=== PATIENT | male | born 1980 | race Caucasian/White ===

== ENCOUNTER → 2016-04-08 | Outpatient (CLI) | payer OTHER ==
[~2016-04-08] MED LIST: OXYC-57 PO
--- NOTE | 2016-04-08 15:49 | DIAGNOSTIC IMAGING REPORT ---
CHEST 2 VIEWS ROUTINE HISTORY: PRE-OP Z01.812 COMPARISON: None. FINDINGS: The lungs are clear. Cardiac silhouette is normal in size. No pleural effusions. No pneumothorax. IMPRESSION: No acute process. Electronically signed by: Rajeev Wharton M.D. 04/08/2016 3:48 PM Dictated Date/Time: 04/08/2016 3:45 PM
[2016-04-08 16:29] LABS: BASO % 1.2 %; BASO ABS # 0.16 K/uL (0-0.2); COMPLETE YES; EOS % 4.5 %; HEMATOCRIT 39.3 % (42-52); IG% 0.2 %; LYMPH % 26.9 %; LYMPH ABS # 3.65 K/uL (1.2-3.4); MEAN CELL VOLUME 88.7 fL (80-100); MEAN CORPUSCULAR HEMOGLOBIN 31.2 pg (25-34); MEAN CORPUSCULAR HGB CONC 35.1 g/dl (32-36); MEAN PLATELET VOLUME 10.8 fL (7.4-10.4); MONO % 6.4 %; NEUT % 60.8 %; PLATELET COUNT 309 K/uL (130-400); RED BLOOD COUNT 4.43 M/uL (4.7-6.1); WHITE BLOOD COUNT 13.57 K/uL (4.8-10.8)
[2016-04-08 16:39] LABS: BLOOD UREA NITROGEN 7 mg/dl (7-18); BUN/CREATININE RATIO 6.1 (10-20); CALCIUM 8.8 mg/dl (8.5-10.1); CARBON DIOXIDE 25 mmol/L (21-32); CHLORIDE 110 mmol/L (98-107); GLUCOSE 100 mg/dl (70-99); POTASSIUM 3.9 mmol/L (3.5-5.1); SODIUM 145 mmol/L (136-145); URINE APPEARANCE CLOUDY (CLEAR); URINE BILIRUBIN NEG (NEG); URINE COLOR DK YELLOW; URINE EPITHELIAL CELL AUTO >30 /lpf (0-5); URINE NITRITE NEG (NEG); URINE PH 5.5 (4.5-7.5); URINE SPECIFIC GRAVITY 1.024 (1.000-1.030); UROBILINOGEN NEG (NEG)
[2016-04-08 16:40] LABS: MANUAL MICROSCOPIC REQUIRED? NO; REVIEW REQ? YES
[2016-04-08 17:01] LABS: URINE MUCUS PRESENT (NONE PRSENT)
== END | disposition home or self-care (01) ==
LOC: C.CPL 15:09
PROVIDERS: ATTEND Orthopaedic Surgery Orthopaedic Surgery of the Spine
DX: Z01.812 Encounter for preprocedural laboratory examination (principal)

== ENCOUNTER 2016-04-11 14:33 | Observation (INO) | payer OTHER ==
[~2016-04-11] VITALS: Ht 190.5 cm; Wt 91.5 kg
[2016-04-11 18:28] VITALS: Ht 190.5 cm; Wt 91.5 kg
[2016-04-11] MEDS ORDERED: LORAZEPAM INJ 1 MG in SYRINGE 0 ML IV PRN (18:30)
[2016-04-11] MEDS ORDERED: NALOXONE HCL 0.4 MG/1 ML VIAL/CARP IV PRN (18:30)
[2016-04-11] MEDS ORDERED: LORAZEPAM 1 MG TAB PO PRN (18:30)
[2016-04-11] MEDS ORDERED: PROMETHAZINE HCL INJ 12.5 MG in SODIUM CHLORIDE 0.9% 50ML 50 ML IV PRN (18:30)
[2016-04-11 19:24] VITALS: BP 123/80; PULSE 92; TEMP 37.2; O2SAT 98
[2016-04-11 19:51] LABS: BASO % 1.8 %; BASO ABS # 0.18 K/uL (0-0.2); COMPLETE YES; EOS % 8.8 %; HEMATOCRIT 40.2 % (42-52); IG% 0.4 %; LYMPH % 31.2 %; LYMPH ABS # 3.18 K/uL (1.2-3.4); MEAN CELL VOLUME 88.2 fL (80-100); MEAN CORPUSCULAR HEMOGLOBIN 30.7 pg (25-34); MEAN CORPUSCULAR HGB CONC 34.8 g/dl (32-36); MEAN PLATELET VOLUME 10.6 fL (7.4-10.4); MONO % 7.1 %; NEUT % 50.7 %; PLATELET COUNT 309 K/uL (130-400); RED BLOOD COUNT 4.56 M/uL (4.7-6.1); WHITE BLOOD COUNT 10.19 K/uL (4.8-10.8)
[2016-04-11] MEDS ORDERED: TOPIRAMATE 100 MG TAB PO ONE (20:15)
[2016-04-11] MEDS ORDERED: LORAZEPAM INJ 1 MG in SYRINGE 0.5 ML IV PRN (20:15)
--- NOTE | 2016-04-11 20:21 | Anesthesiology Progress Note ---
Anesthesia Progress Note Date of Service Apr 11, 2016. Progress Notes Pt is tentatively scheduled for R L4-5 microdiscectomy. 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 The pt has been on topamax, but has not been on the medication for 1 month. The pt has not had a seizure in about 5 years. Neurology has been consulted, and will need to provide clearance prior to the pt going to the operating room. Anesthesia will re-evaluate the pt after neurology has evaluated the pt.
--- NOTE | 2016-04-11 21:17 | DIAGNOSTIC IMAGING REPORT ---
CHEST ONE VIEW PORTABLE CLINICAL HISTORY: pre op COMPARISON STUDY: 04/08/2016 FINDINGS: The bones soft tissues and hemidiaphragms are normal. The cardiomediastinal silhouette is normal. The lungs are clear. The pulmonary vasculature is normal. IMPRESSION: Negative chest. Electronically signed by: Yehuda Montoya M.D. 04/11/2016 9:16 PM Dictated Date/Time: 04/11/2016 9:15 PM
[2016-04-11] MEDS: SODIUM CHLORIDE 0.9% 1000ML 1,000 ML IV SCH (21:32)
[2016-04-11] MEDS: DEXAMETHASONE INJ 8 MG in SYRINGE 0 ML IV SCH (21:32)
[2016-04-11] MEDS ORDERED: IV FLUIDS COMPLETED PRN (21:45)
[2016-04-11 23:35] VITALS: BP 118/73; PULSE 74; TEMP 37.2; O2SAT 96
[2016-04-11] MEDS: HYDROmorphone HCL 0.5MG/ML 50 ML CASSETTE IV PRN (23:39)
--- NOTE | 2016-04-12 01:23 | INTERNAL MEDICINE CONSULTATION ---
DATE OF CONSULTATION: 04/11/2016 CHIEF COMPLAINT: Back pain. HISTORY OF PRESENT ILLNESS: This is a 35-year-old male with past medical history significant for seizures and hypertension, comes here secondary to severe back pain and plan for back surgery. The patient says he moved to this place recently and is not following with any doctors and is not taking his seizure medications and blood pressure medications for about a month now. He says he was on Topamax for seizures. He was on gabapentin and Vistaril, does not remember his blood pressure medications and also dose of his medications.His back pain was getting worse and seen by orthopedics and was admitted for elective back surgery. Currently except for back pain, denies any other complaints. No shortness of breath, no cough, no fever, no chills, no headaches, no blurred vision, no dizziness, no nausea, no vomiting. Eating okay. Normal bladder movements. Has some constipation. The patient says his last seizure episode was long time back. ALLERGIES: BEE STING, HIGUERA FISH, JELLYFISH. PAST MEDICAL HISTORY: As mentioned above. PAST SURGICAL HISTORY: None. MEDICATIONS: Currently not taking any medications. FAMILY HISTORY: Not significant. REVIEW OF SYMPTOMS: As per HPI. Rest of review of systems is negative. PHYSICAL EXAMINATION: GENERAL: The patient is of moderate build, not in distress. VITAL SIGNS: Temperature 37.2, pulse 92, respiratory rate 18, blood pressure 123/80, oxygen 98% room air. HEENT: No pallor, no icterus. NECK: No JVD, no neck masses, no carotid bruits. CARDIOVASCULAR: S1, S2 heard. Regular rate and rhythm. No murmur, no gallop. RESPIRATORY SYSTEM: Clear to auscultation bilaterally. No wheezing, no crackles. ABDOMEN: Soft, bowel sounds present. Nontender. No distention. CENTRAL NERVOUS SYSTEM: Nonfocal. EXTREMITIES: No edema, no erythema. LABORATORY DATA: WBC 10.1, hemoglobin 14, hematocrit 40.0, platelets 309. ELECTROCARDIOGRAM AND CHEST X-RAY: Recent chest x-ray, no acute process seen. EKG done on April 08 showed normal sinus rhythm with rate of 86, no acute ST changes seen. ASSESSMENT AND PLAN: This is a 35-year-old male who presents with severe back pain. 1. Severe back pain. Plan for surgery. Pain control as per orthopedics. Labs, recent EKG and chest x-ray are fine. We will follow the BMP. The patient is at acceptable risk to proceed with surgery. Post surgical care as per orthopedics. 2. History of seizures. The patient says he was on Topamax, does not remember the dose. The patient says since he moved to [place], he is not following with any doctors and is not taking his medications for about a month, last seizure episode was many years ago. We will place him on Topamax 100 mg daily. The patient likes to follow with neurologist, so we will consult neurology in the a.m. for further recommendations. 3. Hypertension. The patient says he also was on blood pressure medication, but does not remember the name of the medication. Blood pressure seems to be okay now. We will place him on IV hydralazine p.r.n. If blood pressure gets elevated in the hospital, we will put him on blood pressure medication and he needs to follow with the family doctor. He is okay following with [facility] doctors. 4. Deep venous thrombosis prophylaxis and disposition as per orthopedics. MTDD
[2016-04-12] MEDS: DEXAMETHASONE INJ 8 MG in SYRINGE 0 ML IV SCH ×2 (03:39→11:50)
[2016-04-12 04:02] VITALS: BP 94/57; PULSE 71; TEMP 36.7; O2SAT 96
[2016-04-12] MEDS ORDERED: CEFAZOLIN 2000 MG/60 ML D5W IV SCH (06:00)
[2016-04-12] MEDS ORDERED: CEFAZOLIN IV 2,000 MG in DEXTROSE 5% 50ML 50 ML IV SCH (06:00)
[2016-04-12 06:45] LABS: BUN/CREATININE RATIO 10.6 (10-20); CALCIUM 9.3 mg/dl (8.5-10.1); CREATININE 1.2 mg/dl (0.60-1.40); POTASSIUM 4.5 mmol/L (3.5-5.1)
[2016-04-12] MEDS: HYDROmorphone HCL 0.5MG/ML 50 ML CASSETTE IV PRN ×2 (06:56→14:59)
[2016-04-12 07:17] VITALS: BP 100/62; PULSE 72; TEMP 36.5; O2SAT 96
[2016-04-12] MEDS: OXYCODONE/ACETAMINOPHEN 5-325 TAB PO PRN ×2 (08:41→22:05)
[2016-04-12] MEDS ORDERED: TOPIRAMATE 100 MG TAB PO SCH (09:00)
--- NOTE | 2016-04-12 09:16 | Neurology Consultation ---
Neurology Consultation Date of Consultation: Apr 12, 2016. Attending Physician: Domingo Naqvi M.D. Primary Care Physician: No Doctor, Assigned Reason for Consultation: Consultation for history of seizures History of Present Illness Source: patient, hospital records This is a 35-year-old male who presents to the hospital with chronic worsening back pain with symptoms of pain and numbness going down the right leg. Patient admitted for elective lumbar surgery. Patient reports that he first heard to have seizures when he was 11 years old. He states that there are temporal lobe seizure but denies any knowledge of abnormal EEGs and states that he is never had an MRI of his brain. He denies any aura or warning. He reports that he gets all shaky and often is aware of generalized shaking. He reports that over the lightheaded and passed out. He also reports that his girlfriend says that he frequently shakes and asleep. He reports rare episodes of urinary incontinence during sleep. He reports these but the tip of his tongue in the past. Patient reports is not sure when his last seizure was. He reports having a 24-hour ambulatory EEG in the remote past but does not know the results. Denies ever having an MRI of his brain. In addition also reports sleep paralysis in which she wakes up and cannot move. He reports that his last neurologist was when he was institutionalized in a [facility] near [place]. He does not know the neurologist name. He denies ever being given the diagnosis of nonepileptic seizures. He reports that he was taking Topamax 50 mg twice a day for seizures. He reports some taste change and weight loss. He thinks that it did improve his seizures but it's not clear whether they stopped them. He denies that Topamax is being used for migraines or psychiatric reasons. Past medication trials: Topamax 50 mg twice a day he reports worked well but had side effects of taste change and decreased weight Depakote caused too much weight gain Tegretol he "grew out of it" Carbamazepine caused hallucinations In addition the patient reports getting frequent headaches. He reports headaches started in his 20s. He gets a few per week. They've been slowly worsening over the years. They tend to be bifrontal and occipital. There is a throbbing quality. He sometimes sees flashes of light in his vision. They can last 1-2 days. He gets light and sound sensitive. He will get nauseous and sometimes vomit. On review of systems patient has severe lumbar back pain with radiating pain down the right leg and numbness. Past Medical/Surgical History Schizophrenia Hypertension Seizures NOS (patient reports that the temporal lobe but does not know which side) Denies any past surgeries Family History Patient reports that he is adopted Social History Patient reports that he is on disability for schizophrenia Smokes a half a pack per day, no alcohol use. Reports using a regular marijuana. No synthetic marijuana Allergies Coded Allergies: BEE STING (Verified Allergy, Unknown, 'lungs fill with fluid' per pt, 04/11) Hicks (Verified Allergy, Unknown, 'lungs fill with fluid' per pt, 04/11/16 ) Shellfish (Verified Allergy, Unknown, 'lungs fill with fluid' per pt, 04/11) Current Inpatient Medications Current Inpatient Medications Medications (Trade) Dose Ordered Sig/Christian Route Start Time Stop Time Status Last Admin Dose Admin Dexamethasone Sodium Phosphate 8 mg/Syringe 2 ml @ 1 mls/min Q8H IV 04/11/16 20:00 04/12/16 12:01 04/12/16 03:39 1 MLS/MIN Promethazine HCl/ Sodium Chloride (Phenergan Inj/ Nss 50ml) 50.5 ml @ 202 mls/hr Q6H PRN IV 04/11/16 18:30 05/11/16 18:29 Ondansetron HCl (Zofran Inj) 4 mg Q6H PRN IV 04/11/16 18:30 05/11/16 18:29 Lorazepam 1 mg 1 mg Q6H PRN PO 04/11/16 18:30 05/11/16 18:29 Lorazepam/Syringe (Ativan Inj/ Syringe) 0.5 ml @ 1 mls/min Q6H PRN IV 04/11/16 18:30 05/11/16 18:29 Oxycodone/ Acetaminophen (Percocet 5-325mg Tab) Moderate to Severe deborah... Q4H PRN PO 04/11/16 18:30 04/25/16 18:29 04/12/16 08:41 2 TAB Naloxone HCl (Narcan Inj) 0.1 mg Q5M PRN IV 04/11/16 18:30 05/11/16 18:29 Hydromorphone HCl 25 mg 25 mg PRN PRN IV 04/11/16 18:30 04/25/16 18:29 04/12/16 06:56 25 MG Sodium Chloride 1,000 ml @ 15 mls/hr Q24H IV 04/11/16 18:20 05/11/16 18:19 04/11/16 21:32 15 MLS/HR Cefazolin Sodium (Ancef 2000mg/60 ml D5W) 60 ml @ 100 mls/hr PREOP IV 04/12/16 06:00 04/12/16 18:00 Topiramate 100 mg 100 mg QAM PO 04/12/16 09:00 05/12/16 08:59 04/12/16 08:38 100 MG Lorazepam/Syringe (Ativan Inj/ Syringe) 1 ml @ 0.5 mls/min Q1HWA PRN IV 04/11/16 20:15 05/11/16 20:14 Miscellaneous (Iv Fluids Completed) 1 ea PRN PRN N/A 04/11/16 21:45 04/11/17 21:44 Review of Systems Review of systems otherwise negative except for the above reviewed in history of present illness Physical Exam Vital Signs (Past 24 Hrs): Date Time Temp Pulse Resp B/P Pulse Ox O2 Delivery O2 Flow Rate FiO2 04/12/16 07:45 Room Air 04/12/16 07:17 36.5 72 18 100/62 96 Room Air 04/12/16 04:02 36.7 71 16 94/57 96 Room Air 04/11/16 23:55 Room Air 04/11/16 23:35 37.2 74 16 118/73 96 Room Air 04/11/16 19:24 37.2 92 18 123/80 98 Room Air 04/11/16 18:52 Room Air 04/11/16 18:28 Room Air Gen.: Patient is alert and sitting in bed, in no acute distress. HEENT: Normocephalic /atraumatic, no scleral icterus Heart: Regular rate and rhythm Extremities: No gross deformities or rashes noted Neurological examination: Mental status: Patient is alert and oriented x3. Attention and concentration normal for the situation. Good fund of knowledge. Able to give her own history. Speech is fluent without any dysarthria or aphasia noted Cranial nerve: Funduscopic examination was unremarkable. No papilledema. Pupils equally round and reactive to light. Extraocular muscles intact without nystagmus. No facial asymmetry noted. Facial sensation intact. Tongue is midline. Good palatal elevation. Good shoulder shrug bilaterally. Hearing grossly intact to voice. Strength: 5/5 both proximal and distally in all extremities. There is no arm drift. Tone is normal. Sensation: Grossly intact to light touch in all extremities. Subjective decrease in right lower extremity Deep tendon reflexes: +1 in bilateral biceps, brachioradialis and patellar. Coordination: Patient had good finger to nose without dysmetria Station within the bed was normal Laboratory Results Past 24 Hours: 04/11/16 19:19 Red Blood Count 4.56, Mean Corpuscular Volume 88.2, Mean Corpuscular Hemoglobin 30.7, Mean Corpuscular Hemoglobin Concent 34.8, Mean Platelet Volume 10.6, Neutrophils (%) (Auto) 50.7, Lymphocytes (%) (Auto) 31.2, Monocytes (%) (Auto) 7.1, Eosinophils (%) (Auto) 8.8, Basophils (%) (Auto) 1.8, Neutrophils # (Auto) 5.17, Lymphocytes # (Auto) 3.18, Monocytes # (Auto) 0.72, Eosinophils # (Auto) 0.90, Basophils # (Auto) 0.18 04/12/16 05:37 Test 04/11/16 19:19 04/12/16 05:37 White Blood Count 10.19 K/uL (4.8-10.8) Red Blood Count 4.56 M/uL (4.7-6.1) Hemoglobin 14.0 g/dL (14.0-18.0) Hematocrit 40.2 % (42-52) Mean Corpuscular Volume 88.2 fL (80-100) Mean Corpuscular Hemoglobin 30.7 pg (25-34) Mean Corpuscular Hemoglobin Concent 34.8 g/dl (32-36) Platelet Count 309 K/uL (130-400) Mean Platelet Volume 10.6 fL (7.4-10.4) Neutrophils (%) (Auto) 50.7 % Lymphocytes (%) (Auto) 31.2 % Monocytes (%) (Auto) 7.1 % Eosinophils (%) (Auto) 8.8 % Basophils (%) (Auto) 1.8 % Neutrophils # (Auto) 5.17 K/uL (1.4-6.5) Lymphocytes # (Auto) 3.18 K/uL (1.2-3.4) Monocytes # (Auto) 0.72 K/uL (0.11-0.59) Eosinophils # (Auto) 0.90 K/uL (0-0.5) Basophils # (Auto) 0.18 K/uL (0-0.2) RDW Standard Deviation 40.4 fL (36.4-46.3) RDW Coefficient of Variation 12.6 % (11.5-14.5) Immature Granulocyte % (Auto) 0.4 % Immature Granulocyte # (Auto) 0.04 K/uL (0.00-0.02) Anion Gap 11.0 mmol/L (3-11) Est Creatinine Clear Calc Drug Dose 100.7 ml/min Estimated GFR () 89.0 Estimated GFR (Non- 76.8 BUN/Creatinine Ratio 10.6 (10-20) Calcium Level 9.3 mg/dl (8.5-10.1) Impression This is a 35-year-old male with reported temporal lobe seizures although I cannot confirm this. It does not appear that the patient has had a comprehensive epilepsy workup at this time as he reports that he is never had an MRI of his brain. In addition is not clear that he is ever had an abnormal EEG per his report. There are some aspects of the patient's story which is concerning for possible nonepileptic seizures including lightheadedness and shakiness with intact awareness. In addition the patient reports that he was only taking Topamax 50 mg twice a day which is not a typical dose for seizure management (that is a typical dose for either migraine or psychiatric management ) which also calls into question his diagnosis. Patient is at risk for psychogenic nonepileptic events with a history of schizophrenia. 2) likely migraine headaches with aura 3) possible sleep paralysis Plan Recommend continuing patient's home medication dose of Topamax 50 mg twice a day. If the patient does have an event concerning for seizures in the hospital, can use Ativan IV 2 mg prn x3. If the patient does have an event concerning for seizures in the hospital, please try to document detailed description of the event. Patient needs an outpatient neurological evaluation for his events concerning for seizures versus nonepileptic events. This of course would not prevent him from getting surgery. I do not have any neurological contraindications for proceeding with surgery. I will try to get an EEG while he is in hospital for further evaluation of his seizures. This is not urgent and should not hold up his surgery. Ideally would like an MRI of his brain for further evaluation of seizures, but this is not urgent and can be done as an outpatient. In the future we'll need to get records from his [facility] to see what his diagnosis and treatment was, and ideally to figure out which neurologist he was seeing to figure out what epilepsy workup has been done in the past. Follow-up in neurology clinic in the next month for further care. Patient needs to establish with primary care physician and psychiatrist as well.
[2016-04-12 11:03] VITALS: BP 116/71; PULSE 80; TEMP 36.7; O2SAT 96
--- NOTE | 2016-04-12 13:26 | EEG Procedure Note ---
EEG Procedure Note Date of Service Apr 12, 2016. Start / End Times Start Time: 9:55 AM End Time: 10:13 AM Referring Physician Elisha Valenzuela History This is a 35-year-old male with verbal word history of epilepsy (possibly temporal lobe). EEG for further evaluation of epilepsy. Patient has been off all medications for a month, but during this hospital admission has been taking pain medications and 2 doses of Topamax Home Medication List No Active Prescriptions or Reported Meds Inpatient Medication List Current Inpatient Medications Medications (Trade) Dose Ordered Sig/Christian Route Start Time Stop Time Status Last Admin Dose Admin Promethazine HCl/ Sodium Chloride (Phenergan Inj/ Nss 50ml) 50.5 ml @ 202 mls/hr Q6H PRN IV 04/11/16 18:30 05/11/16 18:29 Ondansetron HCl (Zofran Inj) 4 mg Q6H PRN IV 04/11/16 18:30 05/11/16 18:29 Lorazepam 1 mg 1 mg Q6H PRN PO 04/11/16 18:30 05/11/16 18:29 Lorazepam/Syringe (Ativan Inj/ Syringe) 0.5 ml @ 1 mls/min Q6H PRN IV 04/11/16 18:30 05/11/16 18:29 Oxycodone/ Acetaminophen (Percocet 5-325mg Tab) Moderate to Severe deborah... Q4H PRN PO 04/11/16 18:30 04/25/16 18:29 04/12/16 08:41 2 TAB Naloxone HCl (Narcan Inj) 0.1 mg Q5M PRN IV 04/11/16 18:30 05/11/16 18:29 Hydromorphone HCl 25 mg 25 mg PRN PRN IV 04/11/16 18:30 04/25/16 18:29 04/12/16 06:56 25 MG Sodium Chloride 1,000 ml @ 15 mls/hr Q24H IV 04/11/16 18:20 05/11/16 18:19 04/11/16 21:32 15 MLS/HR Cefazolin Sodium (Ancef 2000mg/60 ml D5W) 60 ml @ 100 mls/hr PREOP IV 04/12/16 06:00 04/12/16 18:00 Topiramate 100 mg 100 mg QAM PO 04/12/16 09:00 04/13/16 08:59 04/12/16 08:38 100 MG Lorazepam/Syringe (Ativan Inj/ Syringe) 1 ml @ 0.5 mls/min Q1HWA PRN IV 04/11/16 20:15 05/11/16 20:14 Miscellaneous (Iv Fluids Completed) 1 ea PRN PRN N/A 04/11/16 21:45 04/11/17 21:44 Topiramate (Topamax Tab) 50 mg BID PO 04/12/16 21:00 05/12/16 08:59 Description This is a 21 electrode EEG with a single channel dedicated to limited EKG. The electrodes were placed in accordance with the International 10-20 system. At the start of this recording the patient wasn't awake state. Background was poorly organized with no well formed anterior to posterior gradient. Background was composed of symmetric moderate amplitude 6-7 Hz theta frequencies. There did appear to be occasional intermittent delta slowing over the left hemisphere. There was no state changes or sleep transients. Hyperventilation was not done. Photic stimulation at various frequencies did not produce any abnormalities. Interpretation This is an abnormal routine EEG secondary to: 1) moderate diffuse background disorganization and slowing 2) occasional intermittent slowing over the left hemisphere There was no electrographic seizures or epileptiform discharges. Clinical Correlation This EEG indicates: 1) moderate encephalopathy of nonspecific etiology 2) structural or functional cerebral dysfunction over the left hemisphere.
--- NOTE | 2016-04-12 13:51 | HISTORY & PHYSICAL EXAMINATION ---
DATE OF ADMISSION: 04/11/2016 CHIEF COMPLAINT: Back and right leg pain. HISTORY OF PRESENT ILLNESS: A 35-year-old male whose history is well documented, is significant for seizures, hypertension and back pain, who was scheduled as an outpatient for semi-elective surgery due to severe pain and numbness that was unresponsive to outpatient management. Anesthesia felt he was at higher risk for elective surgery due to his lack of recent use of his anti-seizure medication and he is admitted for clearance as he had no outpatient physician currently following him. Reports his pain is controlled while an inpatient. He states his foot has no weakness. He has no left leg symptoms currently. No saddle anesthesia. No incontinence. He reports constipation. ALLERGIES: No drug allergies. PAST MEDICAL HISTORY: As above. PAST SURGERIES: None. MEDICATIONS: The patient was taking oral narcotic pain medication prior to admission. REVIEW OF SYSTEMS: Negative for incontinence, history of coronary artery disease, problems with anesthesia or bleeding diathesis. PHYSICAL EXAMINATION: The patient appears comfortable lying supine in bed. He has multiple tattoos, he answers questions appropriately, he has normal affect. Positive straight leg raise on the right, negative on the left. He has symmetric normal DTRs of the patella. No clonus bilaterally. He has dysesthesias, paresthesias to light touch per his report in the right lower extremity, most notably in L5 distribution. He has good strength in ankle dorsiflexion and plantar flexion today. He has nontender logroll of the hip. He has positive palpable pulses in the right lower extremity. He has regular rate and rhythm and is breathing comfortably. His lungs are clear to auscultation. He has no tenderness in the abdomen. Outside MRI was reviewed. He has a massive L4-L5 disc herniation, somewhat eccentric to the right, causing significant canal compromise. ASSESSMENT: Massive right L4-L5 herniated nucleus pulposus with severe radiculopathy. PLAN: The patient has been cleared by neurology and medicine for surgery. Given poor pain control on outpatient basis, we are anticipating taking him to the OR tomorrow for microdiscectomy right L4-L5. Risks are reviewed. The patient would like to proceed. INESSA
[2016-04-12 15:03] VITALS: BP 125/72; PULSE 84; TEMP 37; O2SAT 96
[2016-04-12] MEDS: NICOTINE 21 MG/24 HR TDSY TD SCH (16:54)
[2016-04-12] MEDS: SODIUM CHLORIDE 0.9% 1000ML 1,000 ML IV SCH (18:03)
--- NOTE | 2016-04-12 18:58 | Progress Note ---
Medicine Progress Note Date & Time of Visit: Apr 12, 2016 at 18:52. Subjective Patient seen and examined. Significant other in hospital bed with patient. Patient reports pain is manageable with current regimen. Objective Last 8 Hrs Date Time Temp Pulse Resp B/P Pulse Ox O2 Delivery O2 Flow Rate FiO2 04/12/16 15:45 Room Air 04/12/16 15:03 37.0 84 16 125/72 96 Room Air 04/12/16 11:03 36.7 80 16 116/71 96 Room Air Physical Exam: General-awake; alert; NAD Eyes-EOMI; no scleral icterus Neck-no stridor; trachea midline Lungs-CTA bilaterally anteriorly Heart-RRR; no m/r/g Abdomen-soft; NTND; nBS Neuro-no gross focal deficits Laboratory Results: Last 24 Hours Test 04/11/16 19:19 04/12/16 05:37 White Blood Count 10.19 K/uL Red Blood Count 4.56 M/uL Hemoglobin 14.0 g/dL Hematocrit 40.2 % Mean Corpuscular Volume 88.2 fL Mean Corpuscular Hemoglobin 30.7 pg Mean Corpuscular Hemoglobin Concent 34.8 g/dl Platelet Count 309 K/uL Mean Platelet Volume 10.6 fL Neutrophils (%) (Auto) 50.7 % Lymphocytes (%) (Auto) 31.2 % Monocytes (%) (Auto) 7.1 % Eosinophils (%) (Auto) 8.8 % Basophils (%) (Auto) 1.8 % Neutrophils # (Auto) 5.17 K/uL Lymphocytes # (Auto) 3.18 K/uL Monocytes # (Auto) 0.72 K/uL Eosinophils # (Auto) 0.90 K/uL Basophils # (Auto) 0.18 K/uL RDW Standard Deviation 40.4 fL RDW Coefficient of Variation 12.6 % Immature Granulocyte % (Auto) 0.4 % Immature Granulocyte # (Auto) 0.04 K/uL Sodium Level 140 mmol/L Potassium Level 4.5 mmol/L Chloride Level 108 mmol/L Carbon Dioxide Level 21 mmol/L Anion Gap 11.0 mmol/L Blood Urea Nitrogen 13 mg/dl Creatinine 1.20 mg/dl Est Creatinine Clear Calc Drug Dose 100.7 ml/min Estimated GFR () 89.0 Estimated GFR (Non- 76.8 BUN/Creatinine Ratio 10.6 Random Glucose 143 mg/dl Calcium Level 9.3 mg/dl Assessment & Plan Back pain - Ortho managing - possible surgical intervention tomorrow - defer pain management - bowel regimen with docusate and Miralax - patient is low risk for intermediate risk procedure; no further evaluation is required prior to proceeding with surgery Seizure disorder - Neurology consulted - EEG without seizure activity - continue topiramate DVT prophylaxis with SCD's Current Inpatient Medications: Current Inpatient Medications Medications (Trade) Dose Ordered Sig/Christian Route Start Time Stop Time Status Last Admin Dose Admin Promethazine HCl/ Sodium Chloride (Phenergan Inj/ Nss 50ml) 50.5 ml @ 202 mls/hr Q6H PRN IV 04/11/16 18:30 05/11/16 18:29 Ondansetron HCl (Zofran Inj) 4 mg Q6H PRN IV 04/11/16 18:30 05/11/16 18:29 Lorazepam 1 mg 1 mg Q6H PRN PO 04/11/16 18:30 05/11/16 18:29 Lorazepam/Syringe (Ativan Inj/ Syringe) 0.5 ml @ 1 mls/min Q6H PRN IV 04/11/16 18:30 05/11/16 18:29 Oxycodone/ Acetaminophen (Percocet 5-325mg Tab) Moderate to Severe deborah... Q4H PRN PO 04/11/16 18:30 04/25/16 18:29 04/12/16 08:41 2 TAB Naloxone HCl (Narcan Inj) 0.1 mg Q5M PRN IV 04/11/16 18:30 05/11/16 18:29 Hydromorphone HCl 25 mg 25 mg PRN PRN IV 04/11/16 18:30 04/25/16 18:29 04/12/16 14:59 25 MG Sodium Chloride 1,000 ml @ 15 mls/hr Q24H IV 04/11/16 18:20 05/11/16 18:19 04/12/16 18:03 15 MLS/HR Lorazepam/Syringe (Ativan Inj/ Syringe) 1 ml @ 0.5 mls/min Q1HWA PRN IV 04/11/16 20:15 05/11/16 20:14 Miscellaneous (Iv Fluids Completed) 1 ea PRN PRN N/A 04/11/16 21:45 04/11/17 21:44 Topiramate (Topamax Tab) 50 mg BID PO 04/12/16 21:00 05/12/16 08:59 Nicotine (Nicoderm Cq 21MG Patch) 1 patch QAM TD 04/12/16 15:11 05/12/16 15:10 04/12/16 16:54 1 PATCH Miscellaneous (Remove Nicoderm Patch) 1 ea HS N/A 04/12/16 21:00 05/12/16 20:59
[2016-04-12 19:56] VITALS: BP 119/64; PULSE 87; TEMP 36.7; O2SAT 96
[2016-04-12] MEDS: ONDANSETRON INJ 2 MG/ML 2 ML VIAL IV PRN (20:31)
--- NOTE | 2016-04-12 20:49 | Progress Note ---
Progress Note Contacted by nurse at 8:45pm regarding poor pain control with Dilaudid SNOW REMOVAL/PLOWING pump. Nurse reports patient (and his girlfriend) have pushed the button 16 times an hour and has received >3mg dilaudid which is not controlling his pain. Pt states he takes Percocet at home (not reported on H&P and cannot verify outpatient records at this time). Pt understands to take Percocet, Dilaudid SNOW REMOVAL/PLOWING will need to be stopped. He is fine with this. DC'd dilaudid and will proceed with Percocet PRN overnight. Plan for OR in am. [facility] Hospitalist
[2016-04-12] MEDS: TOPIRAMATE 100 MG TAB PO SCH (21:57)
[2016-04-12] MEDS: DOCUSATE SODIUM 100 MG CAP PO SCH (21:57)
[2016-04-12 22:55] VITALS: BP 126/67; PULSE 84; TEMP 36.7; O2SAT 95
[2016-04-13 06:53] VITALS: BP 125/71; PULSE 80; TEMP 36.4; O2SAT 97
[2016-04-13] MEDS: ONDANSETRON INJ 2 MG/ML 2 ML VIAL IV PRN (07:17)
[2016-04-13] MEDS: POLYETHYLENE (MIRALAX) 17 GM PACK PO SCH ×2 (09:00→09:05)
[2016-04-13] MEDS: DOCUSATE SODIUM 100 MG CAP PO SCH ×2 (09:00→09:05)
[2016-04-13] MEDS: TOPIRAMATE 100 MG TAB PO SCH (09:05)
[2016-04-13] MEDS: NICOTINE 21 MG/24 HR TDSY TD SCH (09:05)
[2016-04-13] MEDS: OXYCODONE/ACETAMINOPHEN 5-325 TAB PO PRN (09:10)
--- NOTE | 2016-04-13 09:24 | History & Physical Bridge Note ---
H&P Re-Evaluation Bridge Note: I have examined the patient, reviewed the History & Physical and in the interval since the performance of the History & Physical I have noted the following changes of clinical significance: No changes noted
[2016-04-13] MEDS ORDERED: NURSING VERBAL MED ORDER STA (10:46)
--- NOTE | 2016-04-13 11:27 | Discharge Instructions ---
Discharge Instructions Admission Reason for Admission: Lumbar Dishernation Discharge Discharge Diagnosis / Problem: Lumbar Disc Herniation Discharge Goals Goal(s): Decrease discomfort, Improve function, Increase independence Activity Recommendations Activity Limitations: as noted below Lifting Limitations: no more than 5 pounds Exercise/Sports Limitations: until after follow-up appointment May Resume Sexual Activity: after follow-up appointment Shower/Bathe: may shower/bathe in 3 days . Instructions / Follow-Up Instructions / Follow-Up ACTIVITY RECOMMENDATIONS: SELF CARE INSTRUCTIONS AFTER A LAMINECTOMY 1. No prolonged sitting (less than 30 minutes for the first 3 weeks after surgery). 2. No bending, lifting more than 5 pounds, or twisting (roll like a log when turning in bed). 3. You may shower 3 days after surgery if no drainage from wound. Thoroughly dry wound. Do not soak in the tub. 4. Please walk as much as you can for exercise. Gradually increase the distance that you walk as your endurance increases. 5. You may drive in 7-10 days if you are comfortable and no longer requiring pain medications. SPECIAL CARE INSTRUCTIONS: VERY IMPORTANT TO READ AND REVIEW A. Your surgical incision has been closed with a cosmetic suture under the skin that will dissolve in about 6 weeks. In 14 days, you can use a pair of clean scissors and cut the suture that is left outside of the skin at the ends of your incision. B. Complications are uncommon, but please contact us if you have any signs or symptoms of: 1. wound infection (fever higher than 102.5 degrees F, redness, separation of wound, drainage, or increasing pain from the incision) 2. blood clots in legs (pain, swelling, redness and warmth in legs) 3. urinary tract infection (fever higher than 102.5 degrees, burning upon urination or increased frequency of urination) 4. nerve problems (inability to walk on your toes or heels, numbness, loss of bowel or bladder control) 5. any other symptoms that concern you. C. Please call the office at if you have any concerns or questions about your operation or recovery. MANAGING PAIN AFTER SPINAL SURGERY 1. Narcotic medication is intended for short-term use and will be provided for surgical pain. Surgical pain usually lasts for a period of 4-6 weeks. Narcotic medication includes Percocet, Vicodin, Darvocet, Tylenol #3 or Lortab. 2. Longer-term pain is more appropriately treated with non-narcotic medication such as Tylenol ES. 3. Muscle spasm is not appropriately treated with narcotics. Muscle relaxers such as Soma, Flexeril or Skelaxin can be used along with Tylenol ES. 4. Remember that we all live with some "aches and pains". This is not unusual or uncommon after an injury or as we get older. 5. We will provide appropriate medication within the normal guidelines of their prescribed use. We will also be very cautious and aware of potential abuse and extended duration of patients' medication needs. 6. Please allow 2-3 days to process refills. Prescriptions will not be mailed but must be picked up at the office. FOLLOW UP VISIT: Keep your scheduled follow-up appointment. Any questions, please call the office at . Current Hospital Diet Patient's current hospital diet: Regular Diet Discharge Diet Recommended Diet: Regular Diet Pending Studies Studies pending at discharge: no Medical Emergencies . Who to Call and When: Medical Emergencies: If at any time you feel your situation is an emergency, please call 911 immediately. . Non-Emergent Contact Non-Emergency issues call your: Surgeon Call Non-Emergent contact if: you have a fever, temperature is above 101, your pain is worsening, wound has increased drainage . "Provider Documentation" section prepared by Carmelo Castro. VTE Core Measure Inpt VTE Proph given/why not?: Rita Betancur
[2016-04-13] MEDS ORDERED: OXYC-57 PO (11:29)
[2016-04-13] MEDS: CEFAZOLIN 2000 MG/60 ML D5W IV SCH ×2 (11:40→14:11)
[2016-04-13] MEDS ORDERED: BUPIVACAINE 0.5 % 5 MG/1 ML MPF 30ML VIAL ONE (11:44)
[2016-04-13] MEDS ORDERED: SODIUM CHLORIDE 0.9% 1000ML 1,000 ML IV SCH (12:40)
--- NOTE | 2016-04-13 12:40 | [facility] Post Operative Brief Note ---
Immediate Operative Summary Operative Date Apr 13, 2016. Pre-Operative Diagnosis massive right L4 - L5 herniated nucleus pulposus wit hsevere radiculopathy Post-Operative Diagnosis massive right L4 - L5 herniated nucleus pulposus wit hsevere radiculopathy Procedure(s) Performed Right L4-L5 Microdiscectomy Surgeon Dr. Domingo Naqvi Corporate Lawyer Surgeon(s) Mark Castro PA-c Estimated Blood Loss 20ml Findings dict Specimens none per surgeon
[2016-04-13] MEDS ORDERED: MoRPHine SULFATE 2 MG/ML CARP IV PRN (12:45)
[2016-04-13] MEDS ORDERED: OXYCODONE/ACETAMINOPHEN 5-325 TAB PO PRN ×2 (12:45)
[2016-04-13] MEDS ORDERED: ONDANSETRON INJ 2 MG/ML 2 ML VIAL IV PRN ×2 (12:45→13:15)
--- NOTE | 2016-04-13 12:51 | DIAGNOSTIC IMAGING REPORT ---
INTRAOPERATIVE LUMBAR SPINE SINGLE VIEW CLINICAL HISTORY: RT L4-5 MICRODISCECTOMY COMPARISON STUDY: No previous studies for comparison. FINDINGS: 2 seconds of fluoroscopic time was utilized. A single intraoperative fluoroscopic spot images provided for interpretation. This reveals posterior skin retractors. There is a metallic probe projected posterior elements at the L4-5 level. IMPRESSION: Intraoperative radiograph for localization purposes. Electronically signed by: Aquilino Taylor M.D. 04/13/2016 12:50 PM Dictated Date/Time: 04/13/2016 12:49 PM
[2016-04-13] MEDS ORDERED: HYDROmorphone INJ 1 MG/ML SYR IV PRN (13:15)
[2016-04-13] MEDS ORDERED: ATROPINE SULFATE 0.1 MG/ML 5ML SYR IV PRN (13:15)
[2016-04-13] MEDS ORDERED: EpHEDrine SULFATE INJ 50 MG/ML AMP IV PRN (13:15)
[2016-04-13] MEDS ORDERED: PROMETHAZINE HCL INJ 6.25 MG in SODIUM CHLORIDE 0.9% 50ML 50 ML IV PRN (13:15)
[2016-04-13] MEDS ORDERED: FENTANYL CITRATE INJ 50 MCG/1 ML 2 ML VIAL ONE (13:15)
[2016-04-13] MEDS: FENTANYL CITRATE INJ 50 MCG/1 ML 2 ML VIAL IV PRN ×2 (13:18→13:23)
--- NOTE | 2016-04-13 13:42 | Anesthesiology Progress Note ---
Anesthesia Post Op Note Date & Time Apr 13, 2016 at 13:42 Vital Signs Pain Intensity: 2 Vital Signs Past 12 Hours Date Time Temp Pulse Resp B/P Pulse Ox O2 Delivery O2 Flow Rate FiO2 04/13/16 13:40 36.2 60 16 141/85 99 Nasal Cannula 3 04/13/16 13:30 36.2 60 16 145/74 99 Nasal Cannula 3 04/13/16 13:20 36.2 76 16 141/82 99 Mask 10 04/13/16 13:10 36.2 74 14 135/77 99 Mask 10 04/13/16 13:00 36.2 83 12 134/75 98 Mask 10 04/13/16 07:45 Room Air 04/13/16 06:53 36.4 80 19 125/71 97 Room Air Notes Mental Status: alert / awake / arousable, participated in evaluation Pt Amnestic to Procedure: Yes Nausea / Vomiting: adequately controlled Pain: adequately controlled Airway Patency, RR, SpO2: stable & adequate BP & HR: stable & adequate Hydration State: stable & adequate Anesthetic Complications: no major complications apparent
[2016-04-13 13:45] VITALS: BP 138/85; PULSE 67; TEMP 36.4; O2SAT 100
[2016-04-13 14:19] VITALS: BP 125/73; PULSE 67; O2SAT 99
[2016-04-13 14:50] VITALS: BP 131/82; PULSE 92; O2SAT 98
[2016-04-13 15:43] VITALS: BP 131/82; PULSE 92; TEMP 36.4; O2SAT 98
--- NOTE | 2016-04-14 08:18 | OPERATIVE REPORT ---
DATE OF OPERATION: 04/13/2016 PREOPERATIVE DIAGNOSIS: Right L4-L5 herniated nucleus pulposus. POSTOPERATIVE DIAGNOSIS: Same. PROCEDURE: Right L4-L5 microdiscectomy. SURGEON: Dr. aNqvi. FOOT AND ANKLE SURGEON: Carmelo Castro PA-C. Please note he participated in all portions of the procedure and was critical for performance of procedure, participated in positioning, prepping, draping, retraction, and wound closure. ANESTHESIA: General endotracheal anesthesia. COMPLICATIONS: None. ESTIMATED BLOOD LOSS: Minimal. DESCRIPTION OF PROCEDURE: After identification of patient and operative level, he was brought to the OR where he underwent induction of general anesthesia. He was then positioned prone on the [facility] OR table. All bony prominences were well padded. Care was taken to avoid pressure in the periorbital area. Lumbosacral area was sterilely prepped and draped in usual fashion. Antibiotics were administered. Timeout was performed. Level was confirmed and skin incision was made over the spinous process of L4 and L5. I exposed the right L4-L5 interlaminar window, placed a band log mill and carriage operator retractor, confirmed level with fluoroscopy and then made a small laminotomy under the caudal edge of L4, removed the ligamentum flavum on the right side and then identified the nerve root. I mobilized this medially, protected it with a nerve retractor, and removed loose disc material from a very large central and paracentral protrusion. After removing significant amount of disc, nerve root appeared decompressed. I explored the disc space, removed loose fragments, and confirmed the nerve roots were decompressed. I then irrigated, applied FloSeal for hemostasis, and closed in layered fashion. All sponge and needle counts were correct at the end of the case. I attest to the content of the Intraoperative Record and any orders documented therein. Any exceptio ns are noted below.
== END 2016-04-13 16:21 | disposition home or self-care (01) ==
LOC: C.3E 18:01 → INTOOBSV 18:01
PROVIDERS: ADMIT Orthopaedic Surgery Orthopaedic Surgery of the Spine; ATTEND Orthopaedic Surgery Orthopaedic Surgery of the Spine
DX: M51.26 Other intervertebral disc displacement, lumbar region (principal); I10 Essential (primary) hypertension; G40.909 Epilepsy, unspecified, not intractable, without status epilepticus; F20.9 Schizophrenia, unspecified; F12.10 Cannabis abuse, uncomplicated; F17.200 Nicotine dependence, unspecified, uncomplicated; Z91.030 Bee allergy status; Z91.013 Allergy to seafood; Z91.018 Allergy to other foods